=== PATIENT | male | born 1985 | race Caucasian/White ===

== ENCOUNTER → 2017-01-17 06:30 | Outpatient (CLI) | payer OTHER ==
[2017-01-17 07:19] LABS: BASOPHILS 0.3 % (0-2); EOSINOPHILS 3.6 % (0-7); HEMATOCRIT 40.2 % (42.0-54.0); HEMOGLOBIN 13.2 g/dL (13.5-17.5); IMMATURE GRANULOCYTES 0.3 % (0-5); LYMPHOCYTES 20.8 % (15-50); MCH 26.6 pg (26.0-34.0); MCHC 32.8 g/dL (31.0-37.0); MEAN PLATELET VOLUME 9.8 fL (7.4-10.4); MONOCYTES 8.6 % (2-11); NEUTROPHILS 66.4 % (40-80); PLATELET COUNT 64 10x3/uL (130-400); RBC 4.96 10x6/uL (4.20-6.10); RDW 14.8 % (11.5-14.5); WBC 3.9 10x3/uL (4.8-10.8)
[2017-01-17 08:05] LABS: CREATININE - SERUM 0.8 mg/dL (0.6-1.3)
[2017-01-17 08:18] LABS: PLATELET ESTIMATE DECREASED
[2017-01-18 10:18] LABS: ANA REFLEX - DIRECT Negative (Negative); IMMUNOGLOBULIN A 145 mg/dL (90-386)
== END | disposition home or self-care (01) ==
LOC: D.RT 06:30
PROVIDERS: Internal Medicine Pulmonary Disease
DX: J90 Pleural effusion, not elsewhere classified (principal); J45.909 Unspecified asthma, uncomplicated